=== PATIENT | female | born 1975 | race Two or more races ===

== ENCOUNTER 2018-12-08 12:07 | Emergency (ER) | payer OTHER ==
[~2018-12-08] VITALS: Ht 162.6 cm; Wt 97.5 kg
[~2018-12-08 12:07] MED LIST: IODOSORB40 GM TP; PREVACID30 MG; PROTONIX40 MG PO; SEPTRA DS TABLE1 TAB PO
[2018-12-08] MEDS ORDERED: CATAFLAN (12:32)
== END 2018-12-08 14:27 | disposition home or self-care (01) ==
LOC: ER 12:07
DX: S90.01XA Contusion of right ankle, initial encounter (principal); S80.01XA Contusion of right knee, initial encounter; W18.39XA Other fall on same level, initial encounter; Y93.89 Activity, other specified; Y92.511 Restaurant or cafe as the place of occurrence of the external cause; Y99.8 Other external cause status

== ENCOUNTER 2019-07-31 09:38 | Emergency (ER) | payer OTHER ==
[~2019-07-31] VITALS: Ht 162.6 cm; Wt 99.8 kg
[~2019-07-31 09:38] MED LIST changes: +CATAFLAN
[2019-07-31] MEDS ORDERED: METHOTREXA25 MG/1 M5 (10:58)
== END 2019-07-31 13:26 | disposition home or self-care (01) ==
LOC: ER 09:38
DX: S33.5XXA Sprain of ligaments of lumbar spine, initial encounter (principal); W18.39XA Other fall on same level, initial encounter; Y93.89 Activity, other specified; Y92.89 Other specified places as the place of occurrence of the external cause; Y99.8 Other external cause status